=== PATIENT | male | born 1970 | race Caucasian/White ===

== ENCOUNTER 2021-01-27 10:10 | Emergency (ER) | payer MEDICAID ==
[~2021-01-27] VITALS: Ht 165.1 cm; Wt 91.6 kg
[2021-01-27 10:10] VITALS: BP 199/109
--- NOTE | 2021-01-27 10:13 | NUR ---
PT BIBA TO BED 09.
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
--- NOTE | 2021-01-27 10:17 | NUR ---
Dr. Bailey at pt bedside for further evaluation.
--- NOTE | 2021-01-27 10:33 | NUR ---
ground control approach technician at pt bedside.
--- NOTE | 2021-01-27 10:35 | NUR ---
audiology technician at pt bedside.
[2021-01-27] MEDS ORDERED: ACET-503 PO (10:36)
[2021-01-27] MEDS ORDERED: MV-M1TAB9 PO (10:36)
[2021-01-27] MEDS ORDERED: ASPI-1822 PO (10:36)
[2021-01-27] MEDS ORDERED: HYDR-4004 PO (10:36)
[2021-01-27] MEDS ORDERED: ASCO500T95 PO (10:36)
[2021-01-27] MEDS ORDERED: LISI-487 PO (10:36)
[2021-01-27] MEDS ORDERED: METF1000 PO (10:36)
[2021-01-27] MEDS ORDERED: ZINC220C28 PO (10:36)
[2021-01-27] MEDS ORDERED: IMO2 PO (10:36)
[2021-01-27] MEDS ORDERED: ATA25 PO (10:36)
[2021-01-27] MEDS ORDERED: SITA100T8 PO (10:36)
[2021-01-27 10:42] LABS: BASOPHILS % (AUTO) 0.3 % (0.0-2.0); EOSINOPHILS # (AUTO) 0.1 K/uL (0-0.4); EOSINOPHILS % (AUTO) 1.3 % (0.0-4.0); HEMATOCRIT 41.1 % (36-52); LYMPHOCYTES # (AUTO) 1.1 K/uL (2.0-11.5); LYMPHOCYTES % (AUTO) 20.8 % (20.5-51.1); MEAN CORPUSCULAR HEMOGLOBIN 29 pg (27-31); MEAN CORPUSCULAR HGB CONC 34 g/dL (33-37); MEAN CORPUSCULAR VOLUME 84.3 fL (80-94); MONOCYTES # (AUTO) 0.4 K/uL (0.8-1.0); MONOCYTES % (AUTO) 7.5 % (1.7-9.3); NEUTROPHILS # (AUTO) 3.8 K/uL (1.8-7.7); NEUTROPHILS % (AUTO) 70.1 % (42.2-75.2); PLATELET COUNT (AUTO) 163 K/uL (140-450); RED BLOOD CELL COUNT(AUTO) 4.88 MIL/uL (4.20-6.10); RED CELL DISTRIBUTION WIDTH 14.1 % (11.6-13.7); WHITE BLOOD COUNT (AUTO) 5.5 K/uL (4.8-10.8)
[2021-01-27] MEDS ORDERED: hydrALAZINE 20 MG/ML VIAL IVP ONE (10:50)
[2021-01-27 10:56] LABS: ANION GAP 10.5 (8-16); CARBON DIOXIDE 30.2 mmol/L (21-32); CREATININE 1.3 mg/dL (0.6-1.3); POTASSIUM 4.7 mmol/L (3.5-5.1)
--- NOTE | 2021-01-27 10:57 | NUR ---
Pt ambulated to restroom with a steady gait.
--- NOTE | 2021-01-27 11:01 | NUR ---
Pt ambulated to ER bed 9.
--- NOTE | 2021-01-27 11:11 | NUR ---
Established IV to left wrist 20G, good blood return noted. Pt tolerated procedure well.
[2021-01-27] MEDS ORDERED: INSULIN REGULAR, HUMAN 100 UNIT/ML VIAL SUBQ ONE (11:30)
--- NOTE | 2021-01-27 11:52 | NUR ---
Pt resting, visible equal rise and fall of chest, VSS, will continue to monitor.
[2021-01-27 12:59] VITALS: BP 152/74
--- NOTE | 2021-01-27 12:59 | NUR ---
Patient discharged with v/s stable. Written and verbal after care instructions given and explained. Patient verbalized understanding. Ambulatory with steady gait. All questions addressed prior to discharge. Advised to follow up with PMD.
== END 2021-01-27 12:59 | disposition home or self-care (01) ==
LOC: MED 10:10
DX: R09.1 Pleurisy (principal); J96.91 Respiratory failure, unspecified with hypoxia; I10 Essential (primary) hypertension; E11.9 Type 2 diabetes mellitus without complications; Z79.899 Other long term (current) drug therapy; Z20.822 Contact with and (suspected) exposure to COVID-19
CPT/HCPCS: 36415; 71045; 80048; 84484; 85025; 96372; 96374; 99284; J0360; J1815